=== PATIENT | female | born 1975 | race Two or more races ===

== ENCOUNTER → 2019-05-27 | Day surgery (SDC) | payer OTHER ==
[~2019-05-27] MED LIST: LEVOTHYROXINE25 MCG PO; METFORMIN HCL500 MG PO; TAMOXIFEN CITRA20 MG PO; [UNRECOGNIZED DRUG - OTHER] PO
== END | disposition home or self-care (01) ==
LOC: ADM 05-25 08:00 → CIR.AMB 08:00
PROVIDERS: Specialist
PROC: 0HRU0JZ Replacement of Left Breast with Synthetic Substitute, Open Approach (ICD-10-PCS; 2019-05-27)
PROC: 0HBT0ZZ Excision of Right Breast, Open Approach (ICD-10-PCS; principal; 2019-05-27 09:00)
DX: N65.1 Disproportion of reconstructed breast (principal); Z85.3 Personal history of malignant neoplasm of breast
CPT/HCPCS: 19318; 19325; C1789